=== PATIENT | male | born 1985 | race Caucasian/White ===

== ENCOUNTER 2016-10-12 12:32 | Emergency (ER) | payer OTHER ==
[~2016-10-12] VITALS: Ht 185.4 cm; Wt 86.4 kg
[2016-10-12 12:35] VITALS: TEMP 99.1
[2016-10-12] MEDS ORDERED: CLEOCIN HCL300 MG (12:37)
[2016-10-12] MEDS ORDERED: CLEOCIN HCL75 MG PO (13:27)
[2016-10-12 13:53] VITALS: BP 218/95; PULSE 97
== END 2016-10-12 13:54 | disposition home or self-care (01) ==
LOC: COL.ER 12:32
DX: J36 Peritonsillar abscess (principal)
CPT/HCPCS: J1100; J2270; J7120

== ENCOUNTER 2016-12-09 09:35 | Emergency (ER) | payer OTHER ==
[~2016-12-09] VITALS: Ht 188 cm; Wt 86.4 kg
[~2016-12-09 09:35] MED LIST: CLEOCIN HCL300 MG; CLEOCIN HCL75 MG PO
[2016-12-09 09:42] VITALS: BP 118/75; TEMP 98.9
[2016-12-09 10:10] VITALS: PULSE 86
== END 2016-12-09 10:10 | disposition home or self-care (01) ==
LOC: COL.ER 09:35
DX: J36 Peritonsillar abscess (principal); Z87.891 Personal history of nicotine dependence